=== PATIENT | male | born 1950 | race Hispanic/Latino ===

== ENCOUNTER 2024-09-10 11:04 | Emergency (ER) | payer BC, MEDICARE ==
[~2024-09-10] VITALS: Ht 182.9 cm; Wt 102.0 kg
[2024-09-10 11:11] VITALS: BP 156/81; TEMP 98.2; O2SAT 98
[2024-09-10] MEDS ORDERED: MELO15TA28 (11:18)
[2024-09-10] MEDS ORDERED: LIDO1ADH93 TOP (11:58)
[2024-09-10] MEDS: LIDOCAINE 5% PATCH TD ONE (12:01)
[2024-09-10] MEDS: ACETAMINOPHEN 325 MG TAB PO ONE (12:01)
== END 2024-09-10 12:16 | disposition home or self-care (01) ==
LOC: M ED 11:04
DX: S39.011A Strain of muscle, fascia and tendon of abdomen, initial encounter (principal); Y92.9 Unspecified place or not applicable; Y93.9 Activity, unspecified; Y99.9 Unspecified external cause status; Z91.09 Other allergy status, other than to drugs and biological substances; Z79.899 Other long term (current) drug therapy